=== PATIENT | female | born 2000 ===

== ENCOUNTER 2024-10-28 01:16 | Emergency (ER) | payer BC ==
[~2024-10-28] VITALS: Ht 243.8 cm; Wt 57.6 kg
[2024-10-28 01:30] VITALS: BP 120/75; TEMP 98
[2024-10-28] MEDS ORDERED: LIDOCAINE /MPF 1% VIAL 5 ML VIAL ONE (02:11)
[2024-10-28 02:34] VITALS: O2SAT 99
== END 2024-10-28 02:40 | disposition home or self-care (01) ==
LOC: EDUNIT# 01:16 → ER 01:26
DX: S31.41XA Laceration without foreign body of vagina and vulva, initial encounter (principal); N93.0 Postcoital and contact bleeding; J45.909 Unspecified asthma, uncomplicated; X58.XXXA Exposure to other specified factors, initial encounter; Y93.89 Activity, other specified; Y92.098 Other place in other non-institutional residence as the place of occurrence of the external cause; Y99.8 Other external cause status
CPT/HCPCS: 12001; 99284; A4223; J3490; J7030